=== PATIENT | female | born 1985 | race Caucasian/White ===

== ENCOUNTER 2016-11-18 08:30 | Emergency (ER) | payer OTHER ==
[~2016-11-18] VITALS: Ht 165.1 cm; Wt 106.4 kg
[2016-11-18] MEDS ORDERED: SODIUM CHLORIDE 0.9% 1,000 ML IV ONE (09:38)
[2016-11-18] MEDS ORDERED: SODIUM CHLORIDE FLUSH 10ML SYR IVF ONE (10:00)
[2016-11-18] MEDS ORDERED: SODIUM CHLORIDE 0.9% 1,000ML IVBOLUS ONE (10:00)
[2016-11-18] MEDS ORDERED: LEVO137T3 PO (10:25)
[2016-11-18 10:45] LABS: HEMOGLOBIN 13.8 g/dL (11.7-16.4)
[2016-11-18 10:57] LABS: ASPARTATE AMINO TRANSFERASE 16 U/L (15-37); BLOOD UREA NITROGEN 9 mg/dL (7-18)
[2016-11-18 11:11] VITALS: BP 117/62
== END 2016-11-18 11:41 | disposition home or self-care (01) ==
LOC: ED 09:23
DX: O20.0 Threatened abortion (principal); O23.41 Unspecified infection of urinary tract in pregnancy, first trimester; R10.2 Pelvic and perineal pain; Z3A.01 Less than 8 weeks gestation of pregnancy
CPT/HCPCS: 36415; 76801; 80053; 81001; 84702; 85025; 86901; 87086; 96360; 99285; J7030

== ENCOUNTER 2016-12-29 05:34 | Day surgery (SDC) | payer OTHER ==
[~2016-12-29] VITALS: Ht 165.1 cm; Wt 106.0 kg
[~2016-12-29 05:34] MED LIST: LEVO137T3 PO
[2016-12-29] MEDS ORDERED: LACTATED RINGERS 1,000 ML IV SCH (06:40)
[2016-12-29 06:46] VITALS: BP 123/77
[2016-12-29] MEDS ORDERED: BUPIVACAINE/PF-EPI 0.25% 1:200K ONE (07:54)
[2016-12-29] MEDS ORDERED: SILVER NITRATE STICK TP ONE (07:54)
[2016-12-29] MEDS ORDERED: MISOPROSTOL 200 MCG TABLET ONE (07:54)
[2016-12-29] MEDS ORDERED: OXYTOCIN 10 UNITS/ML, 1ML ONE (07:54)
[2016-12-29] MEDS ORDERED: METHYLERGONOVINE 0.2 MG/ML IM ONE (07:55)
[2016-12-29] MEDS ORDERED: FENTANYL PF 250 MCG/5ML ONE (08:57)
[2016-12-29] MEDS ORDERED: MIDAZOLAM 1 MG/ML, 2ML ONE (08:57)
[2016-12-29] MEDS ORDERED: ONDANSETRON 2MG/ML, 2ML ONE (08:58)
[2016-12-29] MEDS ORDERED: PROPOFOL 10 MG/ML, 20ML ONE (08:58)
[2016-12-29] MEDS ORDERED: KETOROLAC 30 MG/1 ML ONE (08:58)
[2016-12-29] MEDS ORDERED: DEXAMETHASONE 4 MG/ML, 1ML ONE (08:58)
[2016-12-29] MEDS ORDERED: OXYcodone 5 MG/5 ML ORAL.SOL UDC ONE (09:33)
[2016-12-29] MEDS ORDERED: OXYcodone 5 MG/5 ML ORAL.SOL UDC PO PRN (10:00)
[2016-12-29] MEDS ORDERED: FENTANYL PF 100 MCG/2ML IV PRN (10:00)
[2016-12-29] MEDS ORDERED: ONDANSETRON 2MG/ML, 2ML IVPush PRN (10:00)
[2016-12-29] MEDS ORDERED: OXYC-302 PO (10:57)
== END 2016-12-29 12:20 | disposition home or self-care (01) ==
LOC: OR 05:34 → 4NOR 05:45 → OR 12:20
PROVIDERS: ATTEND Obstetrics & Gynecology Gynecology
DX: O02.1 Missed abortion (principal); E03.9 Hypothyroidism, unspecified; Z3A.01 Less than 8 weeks gestation of pregnancy
CPT/HCPCS: 36415; 59820; 85025; 86850; 86900; 88305; J1100; J1885; J2250; J2405; J2704; J3010; J2210; J2590

== ENCOUNTER 2018-04-06 05:35 | Day surgery (SDC) | payer OTHER ==
[~2018-04-06] VITALS: Ht 165.1 cm; Wt 83.4 kg
[~2018-04-06 05:35] MED LIST changes: +OXYC-302 PO
[2018-04-06] MEDS ORDERED: CEFAZOLIN 1,000 MG IV ONE (06:00)
[2018-04-06] MEDS ORDERED: LACTATED RINGERS 1,000 ML IV ONE (06:00)
[2018-04-06 06:12] VITALS: BP 128/86
[2018-04-06] MEDS ORDERED: MIDAZOLAM 1 MG/ML, 2ML ONE (06:49)
[2018-04-06] MEDS ORDERED: FENTANYL PF 250 MCG/5ML ONE (06:49)
[2018-04-06] MEDS ORDERED: ROCURONIUM 10MG/ML,5ML ONE ×2 (06:50)
[2018-04-06] MEDS ORDERED: PROPOFOL 10 MG/ML, 20ML ONE (06:50)
[2018-04-06] MEDS ORDERED: SUCCINYLCHOLINE 20 MG/ML, 10ML ONE (06:52)
[2018-04-06] MEDS ORDERED: ONDANSETRON 2MG/ML, 2ML ONE (06:52)
[2018-04-06] MEDS ORDERED: DEXAMETHASONE 4 MG/ML, 1ML ONE ×2 (06:52)
[2018-04-06 07:07] LABS: BASOPHILS # (AUTO) 0.02 x10^3/uL (0-0.1); BASOPHILS % (AUTO) 0 % (0-1); EOSINOPHILS # (AUTO) 0.16 x10^3/uL (0-0.4); EOSINOPHILS % (AUTO) 1 % (1-7); LYMPHOCYTES # (AUTO) 2.53 x10^3/uL (1-3.4); LYMPHOCYTES % (AUTO) 20 % (22-44); MD NO; MEAN CORPUSCULAR HEMOGLOBIN 30.2 pg (27.0-34.8); MEAN CORPUSCULAR HGB CONC 33.6 g/dL (32.4-35.8); MEAN CORPUSCULAR VOLUME 89.8 fL (80-100); MEAN PLATELET VOLUME 8.6 fL (7.4-10.4); MONOCYTES # (AUTO) 0.59 x10^3/uL (0.2-0.8); MONOCYTES % (AUTO) 5 % (2-9); NEUTROPHILS # (AUTO) 9.23 x10^3/uL (1.8-6.8); NEUTROPHILS % (AUTO) 74 % (42-75); PLATELET COUNT 283 x10^3/uL (130-400); RED BLOOD COUNT 4.83 x10^6/uL (3.82-5.3); RED CELL DISTRIBUTION WIDTH 13.9 % (9.6-15.2)
[2018-04-06] MEDS ORDERED: MISOPROSTOL 200 MCG TABLET ONE (07:21)
[2018-04-06] MEDS ORDERED: METHYLERGONOVINE 0.2 MG/ML IM ONE (07:21)
[2018-04-06] MEDS ORDERED: OXYTOCIN 10 UNITS/ML, 1ML ONE (07:21)
[2018-04-06] MEDS ORDERED: MORPHINE SULFATE 4 MG/ML, 1ML IVPush PRN (07:30)
[2018-04-06] MEDS ORDERED: PROMETHAZINE 25 MG/ML, 1ML IV PRN (07:30)
[2018-04-06] MEDS ORDERED: PROMETHAZINE 25 MG SUPP PR PRN (07:30)
[2018-04-06] MEDS ORDERED: hydrALAzine 20 MG/ML, 1ML IV PRN (07:30)
[2018-04-06] MEDS ORDERED: ONDANSETRON 2MG/ML, 2ML IV PRN (07:30)
[2018-04-06] MEDS ORDERED: ACETAMINOPHEN 325 MG TABLET PO PRN (07:30)
[2018-04-06] MEDS ORDERED: OXYcodone 5 MG/5 ML ORAL.SOL UDC PO PRN (07:30)
[2018-04-06] MEDS ORDERED: ONDANSETRON ODT 8 MG PO PRN (07:30)
[2018-04-06] MEDS ORDERED: HYDROmorphone 1 MG/ML, 1ML IV PRN (07:30)
[2018-04-06] MEDS ORDERED: PROMETHAZINE 12.5 MG SUPP PR PRN (07:30)
[2018-04-06] MEDS ORDERED: MEPERIDINE/PF 25MG/0.5ML IVPush PRN (07:30)
[2018-04-06] MEDS ORDERED: LABETALOL 5MG/ML, 20ML IV PRN (07:30)
[2018-04-06] MEDS ORDERED: FENTANYL PF 100 MCG/2ML IV PRN (07:30)
[2018-04-06] MEDS ORDERED: WATER-INJECTION,STERILE 10 ML IV ONE (07:39)
[2018-04-06] MEDS ORDERED: CEFAZOLIN 1,000 MG ONE ×2 (07:39)
[2018-04-06] MEDS ORDERED: KETOROLAC 30 MG/1 ML ONE (07:53)
[2018-04-06] MEDS ORDERED: LACTATED RINGERS 1,000 ML IV SCH (08:27)
[2018-04-06] MEDS ORDERED: IBUPROFEN 600 MG TABLET PO PRN (08:30)
[2018-04-06] MEDS ORDERED: FENTANYL PF 100 MCG/2ML ONE (08:34)
[2018-04-06] MEDS ORDERED: OXYcodone 5 MG/5 ML ORAL.SOL UDC ONE (08:34)
[2018-04-06 12:29] VITALS: BP 119/75
== END 2018-04-06 12:50 | disposition home or self-care (01) ==
LOC: OR 05:35 → 4NOR 06:05 → OR 12:50
PROVIDERS: ATTEND Obstetrics & Gynecology Maternal & Fetal Medicine
DX: O02.1 Missed abortion (principal); E03.9 Hypothyroidism, unspecified; Z72.0 Tobacco use; Z3A.22 22 weeks gestation of pregnancy
CPT/HCPCS: 36415; 59821; 85025; 88305; J0330; J0690; J1100; J1885; J2210; J2250; J2405; J2590; J2704; J3010

== ENCOUNTER 2019-07-17 13:49 | Emergency (ER) | payer OTHER ==
[~2019-07-17] VITALS: Ht 165.1 cm; Wt 107.5 kg
[2019-07-17] MEDS ORDERED: ACETAMINOPHEN 325 MG TABLET ONE (14:34)
--- NOTE | 2019-07-17 14:50 | NUR ---
Pt to ED room 15 from lobby in [place]
[2019-07-17] MEDS ORDERED: ACETAMINOPHEN 325 MG TABLET PO ONE (15:00)
[2019-07-17] MEDS ORDERED: SODIUM CHLORIDE FLUSH 10ML SYR IVF ONE (15:00)
[2019-07-17 15:04] LABS: BASOPHILS # (AUTO) 0.02 x10^3/uL (0-0.1); BASOPHILS % (AUTO) 0 % (0-1); EOSINOPHILS # (AUTO) 0.03 x10^3/uL (0-0.4); EOSINOPHILS % (AUTO) 0 % (1-7); LYMPHOCYTES # (AUTO) 1.09 x10^3/uL (1-3.4); LYMPHOCYTES % (AUTO) 9 % (22-44); MD NO; MEAN CORPUSCULAR HEMOGLOBIN 31.1 pg (27.0-34.8); MEAN CORPUSCULAR HGB CONC 33.5 g/dL (32.4-35.8); MEAN CORPUSCULAR VOLUME 92.7 fL (80-100); MEAN PLATELET VOLUME 8.3 fL (7.4-10.4); MONOCYTES % (AUTO) 8 % (2-9); NEUTROPHILS % (AUTO) 83 % (42-75); PLATELET COUNT 271 x10^3/uL (130-400); RED BLOOD COUNT 4.64 x10^6/uL (3.82-5.3); RED CELL DISTRIBUTION WIDTH 13.6 % (9.6-15.2)
[2019-07-17 15:12] LABS: ALANINE AMINOTRANSFERASE 27 U/L (12-78); ALBUMIN 3.2 g/dL (3.4-5.0); ANION GAP 6 mmol/L (5-15); CALCIUM 8.5 mg/dL (8.5-10.1); CHLORIDE 105 mmol/L (98-107)
[2019-07-17 15:15] LABS: ALKALINE PHOSPHATASE 70 U/L (45-117); BILIRUBIN,TOTAL 0.2 mg/dL (0.2-1.0); TOTAL PROTEIN 7.6 g/dL (6.4-8.2)
--- NOTE | 2019-07-17 15:24 | NUR ---
L&D called to request FHTs, pt ambulatory to ED restroom to get urine sample
--- NOTE | 2019-07-17 15:40 | NUR ---
FHTS BY DOPPLER 135
--- NOTE | 2019-07-17 15:46 | NUR ---
maternal pulse also 135, encouraged a call back to listen to fhts when maternal heart rate decreases
[2019-07-17 15:58] LABS: RAPID INFLUENZA A Negative (Negative); RAPID INFLUENZA B POSITIVE (Negative)
[2019-07-17] MEDS ORDERED: SODIUM CHLORIDE 0.9% 1,000ML IVBOLUS ONE (16:00)
[2019-07-17 16:15] LABS: CULTURE INDICATED? YES; MICROSCOPIC INDICATED
--- NOTE | 2019-07-17 16:47 | NUR ---
L&L called back for [facility] recheck, maternal HR 110s-115s
--- NOTE | 2019-07-17 17:08 | NUR ---
FHTS 132, MATERNAL HR 120
--- NOTE | 2019-07-17 17:18 | NUR ---
Pt up for recheck, awaiting MD dispo
[2019-07-17 17:30] VITALS: BP 133/92
== END 2019-07-17 18:16 | disposition home or self-care (01) ==
LOC: ED 18:10
DX: O99.511 Diseases of the respiratory system complicating pregnancy, first trimester (principal); J10.1 Influenza due to other identified influenza virus with other respiratory manifestations; E03.9 Hypothyroidism, unspecified; Z3A.13 13 weeks gestation of pregnancy
CPT/HCPCS: 36415; 71045; 80053; 81001; 85025; 87086; 87400; 93005; 99284; J7030

== ENCOUNTER 2019-12-17 11:50 | Outpatient (CLI) | payer OTHER ==
[~2019-12-17] VITALS: Ht 165.1 cm; Wt 120.5 kg
[2019-12-17 12:03] VITALS: BP 156/99
[2019-12-17 12:54] LABS: BASOPHILS # (AUTO) 0.05 x10^3/uL (0-0.1); BASOPHILS % (AUTO) 0 % (0-1); EOSINOPHILS # (AUTO) 0.08 x10^3/uL (0-0.4); EOSINOPHILS % (AUTO) 0 % (1-7); LYMPHOCYTES # (AUTO) 2.31 x10^3/uL (1-3.4); LYMPHOCYTES % (AUTO) 13 % (22-44); MD NO; MEAN CORPUSCULAR HEMOGLOBIN 30.6 pg (27.0-34.8); MEAN CORPUSCULAR VOLUME 92.8 fL (80-100); MONOCYTES # (AUTO) 0.78 x10^3/uL (0.2-0.8); MONOCYTES % (AUTO) 4 % (2-9); NEUTROPHILS # (AUTO) 14.42 x10^3/uL (1.8-6.8); NEUTROPHILS % (AUTO) 82 % (42-75); PLATELET COUNT 290 x10^3/uL (130-400); RED BLOOD COUNT 4.36 x10^6/uL (3.82-5.3); RED CELL DISTRIBUTION WIDTH 15.7 % (9.6-15.2)
[2019-12-17 13:04] LABS: ALBUMIN 2.3 g/dL (3.4-5.0); ANION GAP 8 mmol/L (5-15); CALCIUM 9.3 mg/dL (8.5-10.1); CHLORIDE 110 mmol/L (98-107)
[2019-12-17 13:07] LABS: MICROSCOPIC INDICATED
[2019-12-17 13:09] LABS: ALANINE AMINOTRANSFERASE 19 U/L (12-78); ALKALINE PHOSPHATASE 109 U/L (45-117); BILIRUBIN,TOTAL 0.4 mg/dL (0.2-1.0); CREATININE 0.71 mg/dL (0.55-1.02); TOTAL PROTEIN 6.6 g/dL (6.4-8.2)
[2019-12-17 13:10] LABS: BILIRUBIN, DIRECT < 0.1 mg/dL (0.1-0.2)
[2019-12-17] MEDS ORDERED: BETAMETHASONE 6 MG/ML, 5ML IM ONE ×2 (14:30→14:39)
[2019-12-17] MEDS ORDERED: LABE100T6 PO (15:56)
[2019-12-18] MEDS ORDERED: PREN1TAB60 PO (15:16)
== END 2019-12-17 16:00 | disposition home or self-care (01) ==
LOC: LDOP 11:50
PROVIDERS: ATTEND Obstetrics & Gynecology Maternal & Fetal Medicine
DX: O99.283 Endocrine, nutritional and metabolic diseases complicating pregnancy, third trimester (principal); O10.913 Unspecified pre-existing hypertension complicating pregnancy, third trimester; E03.9 Hypothyroidism, unspecified; Z3A.35 35 weeks gestation of pregnancy
CPT/HCPCS: 36415; 59025; 76819; 80053; 81001; 82248; 82570; 84156; 84550; 85025; 96372; 99211; J0702; G0463

== ENCOUNTER 2019-12-18 14:52 | Outpatient (CLI) | payer OTHER ==
[~2019-12-18] VITALS: Ht 165.1 cm; Wt 120.0 kg
[~2019-12-18 14:52] MED LIST changes: +LABE100T6 PO
[2019-12-18] MEDS ORDERED: BETAMETHASONE 6 MG/ML, 5ML IM ONE (15:00)
[2019-12-18 15:11] VITALS: BP 137/70
[2019-12-18] MEDS ORDERED: PREN1TAB60 PO (15:16)
[2019-12-18] MEDS ORDERED: PLEASE ENTER HEIGHT AND WEIGHT MC SCH (15:30)
== END 2019-12-18 16:31 | disposition home or self-care (01) ==
LOC: LDOP 14:52
PROVIDERS: ATTEND Obstetrics & Gynecology Maternal & Fetal Medicine
DX: O11.3 Pre-existing hypertension with pre-eclampsia, third trimester (principal); O99.283 Endocrine, nutritional and metabolic diseases complicating pregnancy, third trimester; E03.9 Hypothyroidism, unspecified; Z3A.34 34 weeks gestation of pregnancy
CPT/HCPCS: 59025; 96372; 99211; J0702; G0463